=== PATIENT | male | born 1995 | race Caucasian/White ===

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

== ENCOUNTER 2018-08-16 00:48 | Emergency (ER) | payer MEDICAID ==
[~2018-08-16] VITALS: Ht 172.7 cm; Wt 81.6 kg
[2018-08-16] MEDS ORDERED: NACL 0.9% 1,000 ML IV ONE (00:52)
[2018-08-16 01:00] VITALS: BP_SYST 97
[2018-08-16] MEDS ORDERED: ONDANSETRON HCL 4 MG/2 ML VIAL IVP ONE (01:00)
[2018-08-16] MEDS ORDERED: MORPHINE 4 MG/ML INJ. SYRINGE IVP ONE (01:00)
[2018-08-16] MEDS ORDERED: MORPHINE 4 MG/ML INJ. SYRINGE ONE (01:45)
[2018-08-16 02:04] LABS: BILIRUBIN,URINE NEGATIVE (NEGATIVE); BLOOD, URINE NEGATIVE (NEGATIVE); CLARITY/URINE CLEAR (CLEAR); COLOR,URINE YELLOW (YELLOW); GLUCOSE,URINE NEGATIVE (NEGATIVE); KETONES,URINE NEGATIVE (NEGATIVE); LEUKOCYTE ESTERASE ,URINE NEGATIVE (NEGATIVE); NITRITE, URINE NEGATIVE (NEGATIVE); PH,URINE 8.5 (5.0-8.0); PROTEIN URINE 1+ (NEGATIVE)
[2018-08-16 02:07] LABS: BASOPHILS # (AUTO) 0.2 K/uL (0.0-0.2); BASOPHILS % (AUTO) 1.1 % (0.0-2.0); EOSINOPHILS % (AUTO) 0.1 % (0.0-4.0); HEMOGLOBIN 17.5 g/dL (14.0-18.0); LYMPHOCYTES # (AUTO) 0.9 K/uL (1.0-5.5); LYMPHOCYTES % (AUTO) 5.6 % (20.5-51.5); MEAN CORPUSCULAR HEMOGLOBIN 30 pg (27-31); MEAN CORPUSCULAR HGB CONC 34 % (32-36); MEAN CORPUSCULAR VOLUME 89 fL (79.0-98.0); MONOCYTES % (AUTO) 5.8 % (1.7-9.3); NEUTROPHILS # (AUTO) 14.6 K/uL (1.8-7.7); NEUTROPHILS % (AUTO) 87.4 % (40.0-70.0); PLATELET COUNT (AUTO) 290 K/uL (130-430); RED BLOOD CELL COUNT(AUTO) 5.86 MIL/uL (4.2-6.2); RED CELL DISTRIBUTION WIDTH 12.3 % (9.0-15.0); WHITE BLOOD COUNT (AUTO) 16.8 K/uL (4.8-10.8)
[2018-08-16 02:11] LABS: BACTERIA,URINE FEW /HPF (None Seen); RBC,URINE 0-3 /HPF (0-3); WBC,URINE 0-3 /HPF (0-3)
[2018-08-16 02:20] LABS: BARBITURATE, URINE NEGATIVE (NEG <=200); BENZODIAZEPINE, URINE NEGATIVE (NEG <=150); CANNABINOID, URINE NEGATIVE (NEG <=50); COCAINE, URINE NEGATIVE (NEG <=150); METHAMPHETAMINES SCREEN,URINE NEGATIVE (NEG <=500); OPIATE, URINE NEGATIVE (NEG <=100); PHENCYCLIDINE SCREEN,URINE NEGATIVE (NEG <=25); UR TRICYCLIC ANTIDEPRESSANTS NEGATIVE (NEG <=300); URINE AMPHETAMINE NEGATIVE (NEG <=500); URINE METHADONE NEGATIVE (NEG <=200); URINE OXYCODONE SCREEN NEGATIVE (NEG <=100); URINE PROPOXYPHENE SCREEN NEGATIVE (NEG <=300)
[2018-08-16] MEDS ORDERED: cefTRIAXone 1 GM IVPB PREMIX 50 ML IV ONE (02:45)
[2018-08-16 02:48] LABS: CALCIUM 8.8 mg/dL (8.4-11.0); CREATININE 0.99 mg/dL (0.55-1.30); POTASSIUM 4.3 mmol/L (3.5-5.1)
[2018-08-16 02:52] LABS: ALBUMIN 3.6 g/dL (3.4-4.8); PROTHROMBIN TIME 10.7 SECS (9.5-12.5); TOTAL BILIRUBIN 0.6 mg/dL (0.0-1.0)
[2018-08-16 03:29] VITALS: BP_SYST 95
== END 2018-08-16 03:21 | disposition home or self-care (01) ==
LOC: SED 00:48
DX: K52.9 Noninfective gastroenteritis and colitis, unspecified (principal); R11.10 Vomiting, unspecified; F17.210 Nicotine dependence, cigarettes, uncomplicated
CPT/HCPCS: 36415; 71045; 74176; 80053; 80307; 81000; 82150; 83605; 83690; 85025; 85610; 85730; 86710; 87040; 96361; 96365; 96375; 99284; J0696; J2270; J2405; J7030